=== PATIENT | male | born 1940 | race Caucasian/White ===

== ENCOUNTER 2016-05-14 13:33 | Day surgery (SDC) | payer MEDICARE, OTHER ==
[~2016-05-14] VITALS: Ht 177.8 cm; Wt 111.0 kg
[~2016-05-14 13:33] MED LIST: ASPI325T32 PO; ATOR80TA PO; CeFAZolin Inj 2 GM in IV Premix 1 EACH IV ONE; LOSA25TA2 PO; Lactated Ringer's 1,000 ML IV SCH; METF500T4 PO; METO25TA3 PO
[2016-05-14] MEDS ORDERED: Propofol 10,000 mCg/mL 20 mL Inj ONE (13:34)
[2016-05-14 15:04] VITALS: BP 126/56; PULSE 54; RESP 14; O2SAT 95
[2016-05-14] MEDS ORDERED: Lactated Ringer's 1,000 ML IV ONE (15:08)
[2016-05-14] MEDS ORDERED: CeFAZolin Inj 2 gm / 50mL D5W IV ONE (15:28)
[2016-05-14] MEDS ORDERED: Bupivacaine 0.5%/EPI 50 mL Inj INFILTRATE ONE (16:30)
--- NOTE | 2016-05-14 16:45 | PCM.HPANE ---
Patient Data Surgeon Admitting Provider: Attending Provider:Arash Beckman DO Primary Care Physician:Shahram Hall MD Other Provider:Darya Collier Anesthesia Reason for Visit Left Carpal Tunnel Release Ht/WT & BMI Height (Feet): 5 Height (Inches): 10 Weight (Kilograms): 111.76 Body Mass Index 35.00 Allergies Coded Allergies: No Known Allergies (Unverified , 05/09/16) Past Anesthesia History Anesthesia History: Denies:: Abnormal Airway, Anesthesia Reactions, Difficult Intubation, Fam Anesthesia Reaction Diabetes History Hx Diabetes?: Yes Type of Diabetes: Type II Glycemic Control: Oral Medication MRSA MRSA: No Medications Blood Thinner: Aspirin Hypertension Medication: Yes Home Meds Incl Beta Margareth: No Reported Medications Metoprolol Succinate ER (Toprol XL)25 Mg [id number] Mg PO DAILY Ref 0 05/09/16 Atorvastatin (Lipitor)80 Mg [id number] Mg PO DAILY Ref 0 05/09/16 Metformin 500 Mg [id number] Mg PO DAILY Ref 0 05/09/16 Losartan Potassium (Cozaar)25 Mg Tcztzk33.5 Mg PO DAILY 05/09/16 Aspirin 325 Mg [id number] Mg PO DAILY #1 BOTTLE 05/09/16 History HEENT History: Positive for:: Cataracts (not yet surgically treated) Denies:: Abnormal Airway Difficult Intubation Dysphagia Glaucoma Hearing Problem Sinus Problem TMJ Cardiovascular History: Positive for:: Coronary Artery Disease (remote hx of 2 IA) Hypertension Denies:: AICD Abdominal Aortic Aneurism Atrial Fibrillation Chest Pain Heart Murmur Irregular Heartbeat Pacemaker Peripheral Vascular Hx of Respiratory Problem?: No Respiratory History: Denies:: Asthma COPD Emphysema Oxygen Administration Pneumonia Tuberculosis Use of C-PAP Machine (refused sleep study) Use of Inhalers / NEBS Hx Neurologic Problems?: No Neurological History: Denies:: CVA Dementia Dizziness Headaches Multiple Sclerosis Parkinson's Disease Seizures TIA Hx of GI Problems?: No Gastrointestinal History: Denies:: Cirrhosis Diverticulitis Gall Bladder Disease Gastroesphageal Reflux Gastrointestinal Bleeding Heartburn Hepatitis Hiatal Hernia Liver Disease Hx of Problems?: No Genitourinary History: Denies:: Kidney Stones Urinary Tract Infection Male Hx: Denies:: Prostate Problems Scrotal Mass Testicular Surgery Skin History: Positive for:: History Skin Disorders? (hx BCC- Mohs scheduled soon (on chin)) Denies:: Pressure Ulcers Hx Musculoskeletal Problems?: Yes Musculoskeletal History: Positive for:: Joint Replacement (left knee, left shoulder) Musculoskeletal Trauma (left carpal tunnel current admission problem) Osteoarthritis Denies:: Back Injury Fibromyalgia Myasthenia Gravis Hx of Psycho/Social Problems?: No Psycho Social History: Denies:: Anxiety Hx Depression Hx Surgeries?: Yes (left knee, shoulder, left shoulder, freddie ing hernia, appe ) Hx Any Other Health Problems?: Yes Other History: Positive for:: Cancer (BCC) Denies:: Thyroid Disease History Blood Transfusions: Positive for:: Accept Blood Products? Denies:: Blood Transfusions Hx Diabetes: Yes Hx Alcohol Use: NoHx Substance Use: NoHave You Smoked inLast 12 mo: No Stop/Bang S-Snoring: Do You Snore Loudly: No T-Tired: feel tired, fatigued: Yes O-Obsered: Observed not breath: No P-Blood Pressure: treated: Yes B- Body Mass Index > 35 kg/m2: Yes A- Age over 50: Yes N- Neck Large Circumference: No G- Gender Male: Yes KATHERINE Total Score: 5 Risk Assessment Category Category 1A: Patient has history of documented sleep apnea, and HAS NOT received any narcotic, sedative or anesthesia administration during this stay. Category 1B: Patient has history of documented sleep apnea, and HAS received any narcotic , sedative or anesthesia administration during this stay Category 2: Patient has SUSPECTED Obstructive Sleep Apnea, and HAS received any narcotic , sedative or anesthesia administration during this stay. Category 3: Patient has SUSPECTED Obstructive Sleep Apnea and HAS NOT received narcotic, sedative or anesthesia administration during this stay. Category 4: Outpatient in Procedural Areas with known sleep apnea or who screen positive for High Risk via the STOP/BANG questionnaire. Exam Exam General Appearance: Alert, Oriented X3, Cooperative, No Acute Distress HEENT/AIRWAY: MP 3 Lungs: Clear to Auscultation Heart: Exam Unremarkable Plan Impression Patient chart reviewed, patient interviewed and anesthestic plan with risks, benefits, and alternatives discussed, and informed consent obtained. ASA Physical Status: ASA2 Mod Systemic Disease Anesthetic Plan: Regional Block ([place]ald block) Bene/Risks/Altern/Consents: Yes HP Complete Prior to Induction: Yes Clemente Walls MD May 14, 2016 08:38
[2016-05-14] MEDS ORDERED: Lactated Ringer's 1,000 ML IV SCH (16:46)
[2016-05-14] MEDS ORDERED: Lactated Ringer's 500 ML IV PRN (16:46)
[2016-05-14] MEDS ORDERED: HYDROmorphone 1 mg/mL Inj IVPUSH PRN (16:50)
[2016-05-14] MEDS ORDERED: fentaNYL-PF 50 mCg/mL 2 mL Inj IVPUSH PRN (16:50)
[2016-05-14] MEDS ORDERED: Dexamethasone 4 mg/mL Inj IVPUSH PRN (16:50)
[2016-05-14] MEDS ORDERED: MetoCLOpramide 5 mg/mL 2 mL Inj IVPUSH PRN (16:50)
[2016-05-14] MEDS ORDERED: Ondansetron 2 mg/mL 2 mL Inj IVPUSH PRN (16:50)
[2016-05-14] MEDS ORDERED: EPHEDrine Sulfate 50 mg/mL Inj IVPUSH PRN (16:50)
[2016-05-14] MEDS ORDERED: Phenylephrine 10,000 mCg/mL Inj IVPUSH PRN (16:50)
[2016-05-14 17:10] VITALS: BP 140/56; PULSE 56; RESP 16; O2SAT 98
--- NOTE | 2016-05-14 17:24 | PCM.ANEP2 ---
Post Anesthesia Evaluation ASA/CMS Post Anesthesia VS in Patient's Normal Range?: Yes Resp Stable; Airway Patent?: Yes CV Function & Hydration Stable: Yes Mental Status Recovered?: Yes Pain control Satisfactory?: Yes N/V Control Satisfactory?: Yes Clemente Walls MD May 14, 2016 17:24
[2016-05-14 17:45] VITALS: BP 130/60; PULSE 54; RESP 16; O2SAT 98
--- NOTE | 2016-05-14 21:39 | OP ---
[address] [address] OPERATIVE REPORT PATIENT: CEZAR THOMAS : 1940 MR#: [id number] ADMIT: 05/14/2016 JOB ID: [id number] DATE OF SURGERY: 05/14/2016 PREOPERATIVE DIAGNOSIS(ES): Left carpal tunnel syndrome. POSTOPERATIVE DIAGNOSIS(ES): Left carpal tunnel syndrome. PROCEDURE: Left carpal tunnel release. SURGEON: Arash Beckman DO. AIRCRAFT SERVICER: Shea Bryan DO (R). INDICATIONS: The patient is a 75-year-old male with left hand numbness and tingling which has failed conservative measures and he had an EMG confirmed left carpal tunnel syndrome. We discussed treatment options and he wished to proceed with a left carpal tunnel release. We discussed the risks, benefits, and possible complications of surgery including, but not limited to, injury to nerves and vessels, infection, bleeding, incomplete relief of symptoms, stiffness, need for additional procedures. All questions were answered and he wished to proceed. PROCEDURE IN DETAIL: The patient was brought to the operating room. He was given a preoperative antibiotic and IV regional anesthetic. The left upper extremity was sterilely prepped and draped. An incision was made centered over the carpal tunnel in line with the 4th ray. Dissection was carefully carried through subcutaneous tissue. Electrocautery was used for hemostasis. He had some palmaris brevis muscle tissue which was scraped away from the transverse carpal ligament. Transverse carpal ligament was released in its entirety making sure that it was released proximally and distally, and the underlying nerve was then inspected. He did have what appeared to be a small synovial cyst on the flexor tendons and this was released with blunt dissection. The wound was then irrigated and closed with interrupted nylon suture. Marcaine with epi was added as an adjunct local anesthetic. Sterile dressings and a volar splint were applied. Patient tolerated the procedure well. Blood loss was minimal. POSTOPERATIVE PROTOCOL: Have the patient maintain a splint for two weeks. Ice and elevate and follow up in the clinic for recheck. He was given a prescription for Narco 5/325 for postop pain.
== END 2016-05-14 23:59 | disposition home or self-care (01) ==
LOC: SAS 13:33
PROVIDERS: ATTEND Orthopaedic Surgery
DX: G56.02 Carpal tunnel syndrome, left upper limb (principal); I10 Essential (primary) hypertension; I25.10 Atherosclerotic heart disease of native coronary artery without angina pectoris; E11.9 Type 2 diabetes mellitus without complications; I25.2 Old myocardial infarction; M19.90 Unspecified osteoarthritis, unspecified site; Z79.82 Long term (current) use of aspirin; Z79.84 Long term (current) use of oral hypoglycemic drugs
CPT/HCPCS: 64721; J0690; J7120